=== PATIENT | female | born 1990 | race Caucasian/White ===

== ENCOUNTER 2025-03-18 18:23 | Emergency (ER) | payer MEDICAID, OTHER ==
[~2025-03-18] VITALS: Ht 162.6 cm; Wt 48.6 kg
--- NOTE | 2025-03-18 18:45 | ED.PDOC ---
SOB-HPI Chief Complaint: Asthma Time Seen by MD: 18:28 Primary Care Provider: NONE Reviewed notes: Nurses Notes, Medications, Allergies Information Source: Patient Mode of Arrival: Ambulatory Past Medical History PAST MEDICAL HISTORY: Anxiety, Asthma, Denies Surgical History: Denies all surgeries UTILITY ACCOUNTS DIRECTOR History: No Pertinent UTILITY ACCOUNTS DIRECTOR History Family History Family History: Reviewed,noncontributory to illness Constitutional: denies: chills, diaphoresis, fatigue, fever, malaise, sweats, weakness, others EENTM: denies: blurred vision, double vision, ear bleeding, ear discharge, ear drainage, ear pain, ear ringing, eye pain, eye redness, hearing loss, mouth pain, mouth swelling, nasal discharge, nose bleeding, nose congestion, nose pain, photophobia, tearing, throat pain, throat swelling, voice changes, others Respiratory: denies: cough, hemoptysis, orthopnea, SOB at rest, shortness of breath, SOB with excertion, stridor, wheezing, others Cardiovascular: denies: chest pain, dizzy spells, diaphoresis, Dyspnea on exertion, edema, irregular heart beat, left arm pain, lightheadedness, palpitations, PND, syncope, others Gastrointestinal: denies: abdomen distended, abdominal pain, blood streaked bowels, constipated, diarrhea, dysphagia, difficulty swallowing, hematemesis, melena, nausea, poor appetite, poor fluid intake, rectal bleeding, rectal pain, vomiting, others Genitourinary: denies: abnormal vagina bleeding, burning, dyspareunia, dysuria, flank pain, frequency, hematuria, incontinence, pain, , vagina discharge , urgency, others Neurological: denies: dizziness, fainting, headache, left sided numbness, left sided weakness, numbness, paresthesia, pre-existing deficit, right sided numbness, right sided weakness, seizure, speech problems, tingling, tremors, weakness, others Musculoskeletal: denies: back pain, gout, joint pain, joint swelling, muscle pain, muscle stiffness, neck pain, others Integumetry: denies: bruises, change in color, change in hair/nails, dryness, laceration, lesions, lumps, rash, wounds, others Allergic/Immunocompromised: denies: Difficulty Healing, Frequent Infections, Hives, Itching, others Hematologic/Lymphatic: denies: anemia, blood clots, easy bleeding, easy bruising, swollen glands, others Endocrine: denies: excessive hunger, excessive sweating, excessive thirst, excessive urination, flushing, intolerance to cold, intolerance to heat, unexplained weight gain, unexplained weight loss, others Psychiatric: denies: anxiety, bipolar disorder, depression, hopeless, panic di sorder, schizophrenia, sleepless, suicidal, others Physical Exam General Appearance: No Apparent Distress, Normal HEENT: Normal ENT Inspection, Pharynx Normal, TMs Normal Neck: Full Range of Motion, Non-Tender Respiratory: Chest Non-Tender, Lungs Clear, No Accessory Muscle Use, No Re spiratory Distress, Normal Breath Sounds Cardiovascular: No Edema, No JVD, No Murmur, No Gallop, Normal Peripheral Pulses, Regular Rate/Rhythm Breast Exam: Deferred Gastrointestinal: No Organomegaly, Non Tender, No Pulsatile Mass, Normal Bowel Sounds, Soft Genitalia: Deferred Pelvic: Deferred Rectal: Deferred Extremities: Normal capillary refill, Normal inspection, Normal range of motion, Non-tender, No pedal edema Musculoskeletal : Apperance: Normal Neurologic: Alert, No Motor Deficits, Normal Affect, Normal Mood, No Sensory Deficits Cerebellar Function: Normal Reflexes: Normal Skin: Dry, Normal Color, Warm Lymphatic: No Adenopathy Was a procedure done? Was a procedure done?: No Differential Dx Differential Diagnosis: Asthma, Bronchitis X-Ray, Labs, Meds, VS Vital Signs Date Time Temp Pulse Resp B/P (MAP) Pulse Ox O2 Delivery O2 Flow Rate FiO2 03/18/25 18:28 97.9 106 16 109/79 (89) 97 97.9 Time of 1ST Reevaluation: 18:20 Reevaluation 1ST: Unchanged Patient Education/Counseling: Diagnosis, Treatment, Prognosis, Need For Follow Up Family Education/Counseling: No Family Present Departure 1 Departure Time of Disposition: 19:00 Impression: Primary Impression: Encounter for medication refill Additional Impressions: Depression Qualified Codes: F32.89 - Other specified depressive episodes Bipolar 1 disorder Disposition: HOME / SELF CARE / HOMELESS Condition: Stable e-Prescriptions Albuterol Sulfate (Albuterol Sulfate Hfa) 108 Mcg/Act Aer 108 MCG IN 6XD PRN for 30 Days, #1 INHALER Prov: JACOBO YOO 03/18/25 Fluticasone-Salmeterol (Advair Diskus 500/50) 1 Puff Ih 1 PUFF INH BID for 30 Days, #1 INHALER Prov: JACOBO YOO 03/18/25 Gabapentin (Gabapentin) 100 Mg Cap 3 CAP PO TID for 14 Days, #90 CAP Prov: JACOBO YOO 03/18/25 Mirtazapine (Remeron) 15 Mg Tab 0.5 TAB PO QPM for 30 Days, #15 TAB Prov: JACOBO YOO 03/18/25 Albuterol Sulfate (Albuterol Sulfate Hfa) 108 Mcg/Act Aer 108 MCG IN 6XD PRN for 30 Days, #1 AER Prov: JACOBO YOO 03/18/25 Discharged With: Self Critical Care Note Critical Care Time?: No Stability Stability form required: JACOBO Salinas March 18, 2025 18:45
[2025-03-18] MEDS ORDERED: GABA-1308 PO (19:10)
[2025-03-18] MEDS ORDERED: MIRT-93 PO (19:10)
[2025-03-18] MEDS ORDERED: FLUT500M2 INH (19:10)
[2025-03-18] MEDS ORDERED: ALBU108A5 IN (19:10)
[2025-03-18 19:20] VITALS: BP 128/74; PULSE 98; RESP 16; TEMP 97.9; O2SAT 100
== END 2025-03-18 19:42 | disposition home or self-care (01) ==
LOC: ER 18:23
DX: J45.909 Unspecified asthma, uncomplicated (principal); F31.9 Bipolar disorder, unspecified; Z76.0 Encounter for issue of repeat prescription